=== PATIENT | male | born 1990 | race Two or more races ===

== ENCOUNTER 2023-11-15 06:52 | Emergency (ER) | payer OTHER ==
[~2023-11-15] VITALS: Ht 170.2 cm; Wt 63.6 kg
[~2023-11-15 06:52] MED LIST: DOCU-94 PO; LACT10SO3 PO; PHENSUP38 PR
[2023-11-15 07:16] LABS: Basophils # (auto) 0 10 ^3/uL (0-0.2); Basophils % (auto) 0.7 % (0.0-2.0); Eosinophils # (auto) 0.2 10 ^3/uL (0-0.8); Eosinophils % (auto) 3.2 % (0.0-7.0); Hematocrit 44.8 % (41.0-53.0); Lymphocytes # (auto) 2.7 10 ^3/uL (0.4-5.4); Lymphocytes % (auto) 42.2 % (10.0-50.0); Mean Corpuscular Hemoglobin 30.8 pg (28.0-32.0); Mean Corpuscular Hgb Conc. 33.5 g/dL (32.0-36.0); Mean Corpuscular Volume 91.9 fL (80.0-100.0); Monocytes # (auto) 0.4 10 ^3/uL (0-1.3); Monocytes % (auto) 6.1 % (0.0-12.0); Neutrophils # (auto) 3.1 10 ^3/uL (1.6-8.6); Neutrophils % (auto) 47.8 % (37.0-80.0); Nucleated Red Blood Cells % 0.1 %; Red Blood Cells 4.88 10^6/uL (4.5-5.90); White Blood Cell 6.4 10^3/uL (4.4-10.8)
[2023-11-15] MEDS: ONDANSETRON ODT 4 MG TAB PO ONE (07:27)
[2023-11-15] MEDS: KETOROLAC TROMETH 60MG/2ML VIAL IM ONE (07:28)
[2023-11-15 07:31] LABS: Alanine Aminotransferase 28 U/L (7-40); Albumin 4.7 g/dL (3.2-4.8); Alkaline Phosphatase 69 U/L (46-116); Anion Gap 7 (5-15); Aspartate Aminotransferase 34 U/L (13-40); BUN/Creatinine Ratio 9.8 (10.0-20.0); Blood Urea Nitrogen 9 mg/dL (9-23); Calcium 9.7 mg/dL (8.7-10.4); Carbon Dioxide 28 mmol/L (20-30); Chloride 105 mmol/L (98-107); Glucose 92 mg/dL (74-106); Potassium 3.4 mmol/L (3.5-5.1); Sodium 140 mmol/L (136-145)
[2023-11-15 07:32] LABS: Bilirubin, Total 1.6 mg/dL (0.2-1.0); Total Protein 8.3 g/dL (5.7-8.2)
[2023-11-15 07:39] VITALS: BP 101/68; PULSE 73; RESP 16; TEMP 98.4; O2SAT 98
[2023-11-15 07:49] LABS: Urine Bacteria None Seen /hpf (None Seen)
[2023-11-15 08:11] LABS: Urine Blood Negative /uL (Negative); Urine Clarity Clear (Clear); Urine Color Light-Yellow (Yellow); Urine Mucus FEW (None Seen); Urine Protein, UAD Negative (Negative); Urine Urobilinogen Normal (Negative); Urine WBC 3 /hpf (0 - 3); Urine pH 5.5 (5.0-9.0)
[2023-11-15] MEDS ORDERED: NAP500T PO (08:55)
[2023-11-15] MEDS ORDERED: ZOFR4T PO (08:55)
== END 2023-11-15 09:06 | disposition home or self-care (01) ==
LOC: ER 06:52
DX: K80.50 Calculus of bile duct without cholangitis or cholecystitis without obstruction (principal); Z79.899 Other long term (current) drug therapy
CPT/HCPCS: 36415; 71045; 76705; 80053; 81001; 83690; 84484; 85025; 93005; 96372; 99285; J1885; Q0162